=== PATIENT | male | born 1985 | race American Indian/Alaskan Native ===

== ENCOUNTER 2017-04-13 08:46 | Emergency (ER) | payer OTHER ==
[2017-04-13 09:03] VITALS: TEMP 98.3
--- NOTE | 2017-04-13 09:33 | ED PDOC ---
Arrival/HPI - General Historian: Patient - History of Present Illness Time/Duration: 1 hour Symptom Onset: Sudden Symptom Course: Unchanged Quality: Throbbing Severity Level: 7 Activities at Onset: Rest Context: Work <Ramin Shaikh - Last Filed: 04/13/17 10:20> <Wang Nicolas - Last Filed: 04/13/17 11:24> - General Chief Complaint: Trauma Time Seen by Provider: 04/13/17 08:54 - History of Present Illness Narrative History of Present Illness (Text): 04/13/17 09:28 This is a 31 yr. old male with no significant past medical history who presents to the E.D. after being pinned to the wall and a forklift. The patient states that he was working when the forklift backed up to him and pinned his lower extremity to wall. The pain is located from the left hip down to the superior portion of the left mendes. The patient describes the pain as a throbbing and rates it 7/10 in intensity. The patient denies taking anything for the pain. The patient denies any nausea, vomiting, syncopal episodes, lightheadedness, or dizziness. 04/13/17 10:32 (Ramin Shaikh) Past Medical History - Provider Review Nursing Documentation Reviewed: Yes - Psychiatric Hx Substance Use: No <Ramin Shaikh - Last Filed: 04/13/17 10:20> Family/Social History - Physician Review Nursing Documentation Reviewed: Yes Smoking Status: Never Smoked Hx Alcohol Use: No Hx Substance Use: No <Ramin Shaikh - Last Filed: 04/13/17 10:20> Family/Social History: No Known Family HX <Wang Nicolas - Last Filed: 04/13/17 11:24> Allergies/Home Meds <Ramin Shaikh - Last Filed: 04/13/17 10:20> <Wang Nicolas - Last Filed: 04/13/17 11:24> Allergies/Adverse Reactions: Allergies No Known Allergies Allergy (Verified 04/13/17 08:57) Review of Systems - Physician Review All systems were reviewed & negative as marked: Yes - Review of Systems Constitutional: Normal. absent: Fevers, Night Sweats Eyes: Normal. absent: Vision Changes, Eye Pain ENT: Normal. absent: Epistaxis, Sinus Congestion Respiratory: Normal. absent: SOB, Cough, Wheezing Cardiovascular: Normal. absent: Chest Pain, Palpitations, Calf Pain Gastrointestinal: Normal. absent: Abdominal Pain, Constipation, Diarrhea, Vomiting Genitourinary Male: Normal. absent: Frequency, Hematuria Musculoskeletal: Other (leg pain starting from the left hip down to the left mendes.) Neurological: Normal. absent: Headache, Dizziness, Speech Changes Endocrine: Normal. absent: Polyuria, Polydipsia <Ramin Shaikh - Last Filed: 04/13/17 10:20> Physical Exam Vital Signs Reviewed: Yes Temperature: Afebrile Blood Pressure: Normal Pulse: Regular Respiratory Rate: Normal Appearance: Positive for: Well-Appearing, Non-Toxic, Uncomfortable. No: Cachectic Pain Distress: Moderate Mental Status: Positive for: Alert and Oriented X 3 - Systems Exam Head: Present: Atraumatic, Normocephalic. No: Tenderness Pupils: Present: PERRL Extroacular Muscles: Present: EOMI Conjunctiva: Present: Normal. No: Injected Mouth: Present: Moist Mucous Membranes Neck: Present: Normal Range of Motion. No: JVD, Lymphadenopathy Respiratory/Chest: Present: Clear to Auscultation, Good Air Exchange. No: Respiratory Distress, Accessory Muscle Use, Wheezes, Decreased Breath Sounds Cardiovascular: Present: Regular Rate and Rhythm, Normal S1, S2. No: Murmurs, Tachycardic, Bradycardic Abdomen: Present: Normal Bowel Sounds. No: Tenderness, Distention, Peritoneal Signs, Rebound, Guarding Back: Present: Normal Inspection Upper Extremity: Present: Normal Inspection. No: Cyanosis, Edema, Tenderness, Swelling Lower Extremity: Present: NORMAL PULSES, Tenderness (left hip down to the left mendes is tender to palapation.), Swelling Neurological: Present: CN II-XII Intact, Speech Normal Skin: Present: Dry, Normal Color. No: Warm, Rashes Psychiatric: Present: Alert, Oriented x 3, Normal Insight, Normal Concentration <Ramin Shaikh - Last Filed: 04/13/17 10:20> Medical Decision Making - RAD Interpretation Electric Motor Repairman: Radiologist <Ramin Shaikh - Last Filed: 04/13/17 10:20> - RAD Interpretation Electric Motor Repairman: ED Physician <Wang Nicolas - Last Filed: 04/13/17 11:24> ED Course and Treatment: 04/13/17 09:43 Patient came in after being pinned by a forklift at work earlier this morning. We ordered labs including xray of left leg and gave Toradol for pain management. Will re-evaluate the patient status after lab results come back. ( Ramin Shaikh) 04/13/17 09:49 Seen and examined with the resident. Our history and physical exam reveals a gentleman who was at work this morning and was pinned between 2 forklifts. One forklift was stationary and the other one backed into him injuring his left thigh. No signs of a compartment syndrome. (Wang Nicolas) - RAD Interpretation Radiology Orders: 04/13/17 09:24 FEMUR MIN 2 VIEWS LT [RAD] Stat Femur 2 view shows no fracture or dislocation (Wang Nicolas) - Medication Orders Current Medication Orders: Discontinued Medications Ketorolac Tromethamine (Toradol) 30 mg IM ONCE ONE Stop: 04/13/17 09:19 Last Admin: 04/13/17 09:29 Dose: 30 mg Disposition/Present on Arrival - Present on Arrival Any Indicators Present on Arrival: No History of DVT/PE: No History of Uncontrolled Diabetes: No Urinary Catheter: No History of Decub. Ulcer: No History Surgical Site Infection Following: None - Disposition Have Diagnosis and Disposition been Completed?: Yes Disposition Time: 10:20 Patient Plan: Discharge <Ramin Shaikh - Last Filed: 04/13/17 10:20> - Present on Arrival Any Indicators Present on Arrival: No History of DVT/PE: No History of Uncontrolled Diabetes: No Urinary Catheter: No History of Decub. Ulcer: No - Disposition Have Diagnosis and Disposition been Completed?: Yes Patient Plan: Discharge <Wang Nicolas - Last Filed: 04/13/17 11:24> - Disposition Diagnosis: Trauma, Contusion of leg, left Disposition: HOME/ ROUTINE Condition: GOOD Discharge Instructions (ExitCare): Contusion in Adults (ED), Crush Injury (ED) Additional Instructions: Patient is to connie and use crutches to ambulate. Patient is to take ultram for pain management. Patient will receive a note excusing him from work. Patient will be cleared for work once he F/U with PMD. Patient is to return to the [facility] for any new, concerning, or present symptoms persist. Rest ice and elevation. Tylenol or Advil as directed on bottle as needed. Prescriptions: Tramadol HCl [Ultram] 50 mg PO Q6 PRN #15 tab PRN Reason: Pain Referrals: Rian Henley Rewilner, [Primary Care Provider] - Follow up with primary Forms: [employer] (Angolan)
--- NOTE | 2017-04-13 10:45 | RAD ---
PROCEDURE: Left Femur Radiographs. HISTORY: Trauma COMPARISON: None. TECHNIQUE: AP and Lateral Radiographs of the left femur. FINDINGS: FEMUR: Bone alignment and mineralization are normal. No acute fracture. The hip joint space is preserved. SOFT TISSUES: Normal. OTHER FINDINGS: None. IMPRESSION: No acute fracture.
[2017-04-13 11:11] VITALS: BP 137/72; PULSE 83; RESP 16; O2SAT 99
== END 2017-04-13 11:11 | disposition home or self-care (01) ==
LOC: ED 08:46
DX: S80.12XA Contusion of left lower leg, initial encounter (principal); W31.89XA Contact with other specified machinery, initial encounter; Y99.0 Civilian activity done for income or pay
CPT/HCPCS: 73552; 96372; 99285; J1885